=== PATIENT | male | born 1980 | race Caucasian/White ===

== ENCOUNTER 2021-06-23 10:37 | Emergency (ER) | payer MEDICAID, SELFPAY ==
[2021-06-23 11:00] VITALS: BP 128/94; PULSE 82; RESP 15; TEMP 36.9; O2SAT 96; BMI 28.0
--- NOTE | 2021-06-23 11:07 | XRR_ITS ---
PROCEDURE INFORMATION: Exam: XR Right Humerus Exam date and time: 06/23/2021 11:07 AM Age: 40 years old Clinical indication: Pain and injury or trauma; Other: Tree limb fell on right shoulder and arm; Blunt trauma (contusions or hematomas); Shoulder and arm, upper; Upper arm and shoulder; Additional info: Trauma, pain TECHNIQUE: Imaging protocol: XR Right humerus. Views: 2 or more views. COMPARISON: No relevant prior studies available. FINDINGS: Bones/joints: Prior ORIF with a side plate and multiple screws in the mid and distal humerus. The hardware appears intact. No acute fracture. No dislocation. Soft tissues: No acute soft tissue abnormality. XR/[place] [id number] IMPRESSION: No acute osseous abnormality. Radiation Dose CTDIVOL = (mGy): DLP = (mGy-cm)
--- NOTE | 2021-06-23 11:07 | XRR_ITS ---
PROCEDURE INFORMATION: Exam: XR Right Forearm Exam date and time: 06/23/2021 11:07 AM Age: 40 years old Clinical indication: Injury or trauma; Other: Hit by a limb that fell out of top of tree; Bleeding/hemorrhage; Arm, lower; Right; Prior surgery TECHNIQUE: Imaging protocol: XR Right forearm. Views: 2 views. COMPARISON: No relevant prior studies available. FINDINGS: Bones/joints: No fracture. No dislocation. Soft tissues: Increased density and stranding in the subcutaneous tissues of the forearm which could be due to a contusion given the history of trauma. XR/XR forearm RT 2V [id number] IMPRESSION: No acute osseous abnormality. Radiation Dose CTDIVOL = (mGy): DLP = (mGy-cm)
--- NOTE | 2021-06-23 11:07 | XRR_ITS ---
PROCEDURE INFORMATION: Exam: XR Right Shoulder Exam date and time: 06/23/2021 11:07 AM Age: 40 years old Clinical indication: Injury or trauma; Other: Hit by a limb that fell out of top of tree; Blunt trauma (contusions or hematomas); Shoulder; Right TECHNIQUE: Imaging protocol: XR Right shoulder. Views: 2 or more views. COMPARISON: No relevant prior studies available. FINDINGS: Bones/joints: No fracture. No dislocation. The acromioclavicular and glenohumeral joints appear normal. The acromiohumeral interval is normal. Soft tissues: No acute soft tissue abnormality. XR/XR shoulder RT min 2V* [id number] IMPRESSION: No acute osseous abnormality. Radiation Dose CTDIVOL = (mGy): DLP = (mGy-cm)
--- NOTE | 2021-06-23 11:07 | XRR_ITS ---
PROCEDURE INFORMATION: Exam: XR Right Clavicle, Complete Exam date and time: 06/23/2021 11:07 AM Age: 40 years old Clinical indication: Injury or trauma; Other: Hit by a limb that fell out of top of tree; Blunt trauma (contusions or hematomas); Shoulder; Right; Additional info: Trauma, hit by a limb that fell out of top of tree TECHNIQUE: Imaging protocol: XR Right clavicle complete. Views: Any number of views. COMPARISON: CR XR shoulder RT min 2V* [id number] 06/23/2021 11:16 AM FINDINGS: Bones/joints: No fracture. The acromioclavicular joint is normal. Soft tissues: No acute soft tissue abnormality. XR/[place] [id number] IMPRESSION: No fracture. Radiation Dose CTDIVOL = (mGy): DLP = (mGy-cm)
--- NOTE | 2021-06-23 11:08 | W.ED.EXTPRO ---
HPI - Extremity Problem General: Chief complaint: Extremity Injury, Upper Stated complaint: R. ARM PAIN/HIT BY TREE LIMB Time Seen by Provider: 06/23/21 10:59 History of Present Illness: HPI Narrative: Patient complains about right shoulder clavicle and arm pain related to a limb falling out of a tree today striking on his shoulder and forearm. 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 Patient has decreased range of motion due to discomfort. This happened approximately an hour ago. Patient denies head injury MD Complaint: extremity pain and extremity swelling Onset (ago): hour(s) Pain Consistency: constant Location: right and upper extremity Severity scale (1-10): 8 Quality: aching Radiation: distal Relieving factors: immobilization Exacerbating factors: range of motion Associated symptoms: Reports no associated symptoms; Deny chest pain, fever(s) or rash Review of Systems Const: Denies: fever(s), chills or body aches Eyes: Denies: change in vision or blurry vision ENMT: Denies: throat pain or nasal congestion Card: Denies: chest pain or dyspnea on exertion Resp: Denies: dyspnea, productive cough or non-productive cough GI: Denies: abdominal pain, nausea or vomiting : Denies: difficulty urinating Musc: Reports: extremity pain (Struck in right shoulder area and arm), extremity swelling, joint pain and limited range of motion Skin/Breast: Denies: rash Neuro: Denies: headache(s) Psych: Denies: anxiety or depression Danilo/Lymph: Denies: easy bruising PFS ED PFSH: Medical History (Updated 06/23/21 @ 11:50 by ZARINA Sheridan) Low back strain Family History (Updated 05/09/20 @ 11:41 by Nicole Mendes LPN) Other Hyperlipidemia Social History (Updated 05/09/20 @ 11:42 by Nicole Mendes LPN) Smoking and tobacco status: current every day smoker Alcohol intake: current Physical Exam Const: COMMON NORMALS: no acute distress, average body habitus and patient oriented x3 HENMT: COMMON NORMALS: normocephalic HEAD & SCALP: normal to inspection and normocephalic FACE & SINUS: normal facial exam Eye: COMMON NORMALS: conjunctivae normal GENERAL EYE: appearance normal, both eyes and all related structures CONJUNCTIVA: Yes conjunctivae normal Neck/C-Spine: COMMON NORMALS: no JVD Chest: COMMONS NORMALS: normal inspection of the chest Resp: COMMON NORMALS: normal respiratory effort and clear to auscultation bilaterally AUSCULTATION: clear to auscultation bilaterally Cardio: COMMON NORMALS: no JVD, regular rate and regular rhythm RATE: regular rate RHYTHM: regular rhythm GI: COMMON NORMALS: Normal to inspection, nondistended, normoactive bowel sounds present Extremity: RIGHT UPPER EXTREMITY: Yes shoulder joint (Very tender), Yes clavicle (tender to distal aspect mild swelling) and Yes lower arm (Tenderness mid forearm.) OTHER: Patient has limited range of motion to right upper extremity due to tenderness no obvious laceration abrasion or bruising noted mild swelling to the mid forearm and right shoulder area. Most pain centered over the distal aspect clavicle. Neuro: COMMON NORMALS: patient oriented x3, moves all extremities and no focal motor deficits Course Vital Signs: Vital signs: Vital Signs Temperature 98.4 F 06/23/21 11:00 Pulse Rate 82 06/23/21 11:00 Respiratory Rate 15 06/23/21 11:00 Blood Pressure 128/94 06/23/21 11:00 Pulse Oximetry 96 06/23/21 11:00 MDM - Extremity (Nontraumatic) MDM Narrative: Medical decision making narrative: Patient with shoulder and arm pain related to the limb that fell out of a tree that struck him this morning. Radiology studies were all negative. Patient diagnosed with contusion. Discharge Plan Discharge Patient Disposition: Home Clinical Impression: Contusion Qualifiers: Encounter type: initial encounter Contusion area: upper arm Laterality: right Qualified Code(s): S40.021A - Contusion of right upper arm, initial encounter Condition: Stable Prescriptions: No Action No Known Home Medications RF: 0 ibuprofen 800 mg tablet 800 mg PO Q8H 30 Days Qty: 90 RF: 0 methylprednisolone [Medrol (Moshe)] 4 mg tablets,dose pack See Rx Instructions PO PER PKG DIR Qty: 21 RF: 0 Discharge Orders: Discharge ED (Routine); Ordered 06/23/21 Ordered By: Heath Arita Discharge Diet: Usual diet Discharge Activity: Increase activity as tolerated Patient Instructions: Contusion in Adults (ED) Activity Restrictions/Additional Instructions: Apply ice to area as needed. Can take Tylenol and/or ibuprofen for discomfort. Follow-up your family medical provider if no significant improvement or you can return here. Coding Level of Care Code ED Shipping Clerk for Chg Fwd Exam Comprehensive
[2021-06-23 12:22] VITALS: RESP 15; TEMP 36.9; O2SAT 96
[2021-06-23] MEDS: HYDROcodone-acetaminophen 5-325 mg Tablet 1 TAB PO (12:22)
== END 2021-06-23 12:23 | disposition home or self-care (01) ==
PROVIDERS: Emergency Provider Nurse Practitioner Family
DX: S40.021A Contusion of right upper arm, initial encounter (principal); F17.210 Nicotine dependence, cigarettes, uncomplicated; W20.8XXA Other cause of strike by thrown, projected or falling object, initial encounter; Y99.0 Civilian activity done for income or pay
CPT/HCPCS: 73000; 73030; 73060; 73090; 99283